=== PATIENT | male | born 1970 | race Caucasian/White ===

== ENCOUNTER 2016-12-06 18:07 | Emergency (ER) | payer OTHER ==
[~2016-12-06] VITALS: Ht 172.7 cm; Wt 113.4 kg
[~2016-12-06 18:07] MED LIST: AMOX-355 PO; FLUT1DIS26 IH; HYDR-3454 PO; LOVA20TA2 PO; MONT10TA21 PO; OMEP20TA7 PO; PANT40TA2 PO; PRED20TA PO; SERT100T8 PO; SUCR1TAB36 PO
--- OUTSIDE RECORDS SUMMARY | 2016-12-06 18:12 | XMS REPORT | Continuity of Care Document ---
Author Author [facility] Organization [facility] Address Unknown Phone Unavailable Allergies Active Description Code Type Severity Reaction Onset Reported/Identified Relationship to Patient Clinical Status Yes No Known Drug Allergies [id number] Drug Allergy Unknown N/ A 11/13/2014 Medications Problems Date Dx Coded Attending Type Code Diagnosis Diagnosed By 08/24/2014 EMELINA LLANES [employer]ICER Ot 471.9 08/24/2014 EMELINA LLANES [employer]INE [employer] INST[employer]ER AND SERVICER Ot 493.00 11/16/2014 GUERO WEBB, JAZIEL P Ot 470 11/16/2014 GUERO WEBB, JAZIEL P Ot 473.9 11/16/2014 GUERO WEBB, JAZIEL P Ot V72.63 11/16/2014 GUERO WEBB, JAZIEL P Ot V72.81 11/16/2014 GUERO WEBB, JAZIEL P Ot V74.8 11/17/2014 GUERO WEBB, JAZIEL P Ot 470 DEVIATED NASAL SEPTUM 11/17/2014 GUERO WEBB, JAZIEL P Ot 473.0 CHR MAXILLARY SINUSITIS 11/17/2014 GUERO WEBB, JAZIEL P Ot 473.1 CHR FRONTAL SINUSITIS 11/17/2014 GUERO WEBB, JAZIEL P Ot 473.2 CHR ETHMOIDAL SINUSITIS 11/17/2014 GUERO WEBB, JAZIEL P Ot 478.0 HYPERTRPH NASAL TURBINAT 12/05/2014 GUERO WEBB, JAZIEL P Ot 470 12/05/2014 GUERO WEBB, JAZIEL P Ot 473.9 12/05/2014 GUERO WEBB, JAZIEL P Ot V72.63 12/05/2014 GUERO WEBB, JAZIEL P Ot V72.81 12/05/2014 GUERO WEBB, JAZIEL P Ot V74.8 09/29/2016 EMELINA LLANES [employer]INE [employer] INST[employer]ER AND SERVICER Ot 471.9 NASAL POLYP NOS 09/29/2016 EMELINA LLANES [employer]INE [employer] IN[employer]ER AND SERVICER Ot 493.00 EXTRINSIC ASTHMA, NOS 09/29/2016 GUERO WEBB, JAZIEL P Ot 470 DEVIATED NASAL SEPTUM 09/29/2016 JAZIEL JACK MD P Ot 473.9 CHRONIC SINUSITIS NOS 09/29/2016 JAZIEL JACK MD Ot V72.63 PRE-PROCEDURAL LABORATORY EXAMINATION 09/29/2016 JAZIEL JACK MD Ot V72.81 [id number] CARDIOVASCULAR 09/29/2016 JAZIEL JACK MD Ot V74.8 SCREEN-BACTERIAL DIS NEC 10/03/2016 SUMIT SWAIN MD, Ot K21.9 GASTRO-ESOPHAGEAL REFLUX DISEASE WITHOUT 10/03/2016 SUMIT SWAIN MD Ot Z01.818 ENCOUNTER FOR OTHER PREPROCEDURAL EXAMIN 10/03/2016 SUMIT SWAIN MD, Ot K21.9 GASTRO-ESOPHAGEAL REFLUX DISEASE WITHOUT 10/03/2016 SUMIT SWAIN MD, Ot Z01.818 ENCOUNTER FOR OTHER PREPROCEDURAL EXAMIN 10/08/2016 EMELINA LLANES [employer]INE [employer] INST[employer]ER AND SERVICER Ot 471.9 NASAL POLYP NOS 10/08/2016 EMELINA LLANES [employer]INE [employer] INST[employer]ER AND SERVICER Ot 493.00 EXTRINSIC ASTHMA, NOS 10/08/2016 JAZIEL JACK MD Ot 470 DEVIATED NASAL SEPTUM 10/08/2016 JAZIEL JACK MD Ot 473.9 CHRONIC SINUSITIS NOS 10/08/2016 JAZIEL JACK MD Ot V72.63 PRE-PROCEDURAL LABORATORY EXAMINATION 10/08/2016 JAZIEL JACK MD Ot V72.81 [id number] CARDIOVASCULAR 10/08/2016 JAZIEL JACK MD Ot V74.8 SCREEN-BACTERIAL DIS NEC 10/09/2016 SUMIT SWAIN MD, Ot K21.0 GASTRO-ESOPHAGEAL REFLUX DISEASE WITH ES 10/09/2016 SUMIT SWAIN MD Ot K29.70 GASTRITIS, UNSPECIFIED, WITHOUT BLEEDING 10/09/2016 SUMIT SWAIN MD Ot Z98.84 BARIATRIC SURGERY STATUS 10/14/2016 SUMIT SWAIN MD, Ot K21.0 GASTRO-ESOPHAGEAL REFLUX DISEASE WITH ES 10/14/2016 SUMIT SWAIN MD, Ot K29.70 GASTRITIS, UNSPECIFIED, WITHOUT BLEEDING 10/14/2016 SUMIT SWAIN MD, Ot Z98.84 BARIATRIC SURGERY STATUS Procedures Results Encounters ACCT No. Visit Date/Time Discharge Status Pt. Type Provider Facility Loc./Unit Complaint [id number] 10/03/2016 09:30:00 2015 10:11:00 DIS Outpatient SUMIT SWAIN MD [facility] PREOP REFLUX [id number] 11/17/2014 07:59:00 2014 13:28:00 DIS Outpatient JAZIEL JACK MD [facility] CHRONIC SINUTITIS [id number] 11/13/2014 10:23:00 2014 23:59:59 CLS Outpatient JAZIEL JACK MD [facility] PREOP CHRONIC SINUSITIS [id number] 07/24/2014 09:40:00 2013 23:59:59 CLS Outpatient EMELINA LLANES [facility] RAD NASAL POLYP,ALLERGIC RHINITIS [id number] 10/08/2016 08:08:00 ACT Outpatient SUMIT SWAIN MD [facility] REFLUX
[2016-12-06] MEDS ORDERED: TETRACAINE 0.5% OPHTH SOLN 5 ML BTL OU STA (18:29)
[2016-12-06] MEDS ORDERED: FLUORESCEIN (FLUOR-I-STRIPS) 1 MG STRP OU ONE (18:30)
[2016-12-06] MEDS ORDERED: BSS 15 ML IR ONE (18:30)
--- NOTE | 2016-12-06 18:52 | ED EENT ---
History of Present Illness General Chief Complaint: Eye Problems Stated Complaint: SOMETHING IN EYES Nursing Triage Note: PT REPORTS HE GOT SOMETHING IN HIS EYES EARLIER TODAY AND FLUSHED THEM OUT WITH A MULTIPURPOSE SOLUTION AROUND 1700. PT REPORTS BILATERAL EYE IRRITATION/REDNESS/ AND PAIN AFTER FLUSHING. Source: patient Exam Limitations: no limitations History of Present Illness Time seen by provider: 18:52 Initial Comments To ER with bilateral eye redness and pain. He states that he was cleaning out a saltwater fish tank today when he felt as though he may have something in his left eye. He was concerned that he may have had something on his hands when he rubbed his eye. He went home, irrigated both eyes with contact lens cleaning solution and shortly thereafter developed bilateral eye redness and pain. He does see an eye doctor in [place] for a chronic left corneal abrasion/cataract. Timing/Duration: abrupt Location: eye (R), eye (L) Prearrival Treatment: flushing eyes Allergies and Home Medications Allergies Coded Allergies: No Known Drug Allergies (Unverified , 11/13/14) Home Medications Fluticasone/Salmeterol 1 Each Blst.w.dev 1 EACH IH BID (Reported) Lovastatin 20 Mg Tablet 20 MG PO DAILY (Reported) Montelukast Sodium 10 Mg Tablet 10 MG PO DAILY (Reported) Omeprazole 20 Mg Tablet.dr 20 MG PO DAILY (Reported) Pantoprazole Sodium 40 Mg Tablet.dr #90 40 MG PO DAILY Prescribed by: SUMIT SWAIN on 10/08/16 1002 Sertraline Hcl 100 Mg Tablet 100 MG PO DAILY (Reported) Sucralfate 1 Gm Tablet #120 1 GM PO QID Prescribed by: SUMIT SWAIN on 10/08/16 1002 Review of Systems Constitutional: see HPI Eyes: See HPI Blurred VisionDenies Drainage, Decreased Acuity Ears: No Symptoms Reported Nose: no symptoms reported Mouth: no symptoms reported Throat: no symptoms reported Respiratory: no symptoms reported Cardiovascular: no symptoms reported Musculoskeletal: no symptoms reported Skin: no symptoms reported Neurological: No Symptoms Reported Hematologic/Lymphatic: No Symptoms Reported Immunological/Allergic: no symptoms reported Past Cengubq-Qwrtxk-Jriyha Hx Patient Social History Alcohol Use: Occasionally Uses Recreational Drug Use: No Smoking Status: Never a Smoker Recent Foreign Travel: No Contact w/Someone Who Travel: No Recent Infectious Disease Expo: No Recent Hopitalizations: No Seasonal Allergies Seasonal Allergies: Yes Surgeries HX Surgeries: Yes (LAP BAND, SINUS SX) Surgeries: Tonsillectomy Respiratory Hx Respiratory Disorders: Yes Respiratory Disorders: Asthma Cardiovascular Hx Cardiac Disorders: Yes Cardiac Disorders: High Cholesterol Neurological Hx Neurological Disorders: No Genitourinary Hx Genitourinary Disorders: No Gastrointestinal Hx Gastrointestinal Disorders: Yes Gastrointestinal Disorders: Gastroesophageal Reflux Musculoskeletal Hx Musculoskeletal Disorders: No Endocrine Hx Endocrine Disorders: No HEENT HX ENT Disorders: No Cancer Hx Cancer: No Psychosocial Hx Psychiatric Problems: No Integumentary HX Skin/Integumentary Disorder: No Blood Transfusions Hx Blood Disorders: No Physical Exam Vital Signs Vital Sign - Last 12Hours 12/06/16 18:22 Temp 98.2 Pulse 85 Resp 18 B/P 142/82 Pulse Ox 95 General Appearance: WD/WN no apparent distress Eyes: bilateral eye EOMI, bilateral eye PERRL, bilateral eye other (bilateral conjunctival and scleral injection. There is no dye uptake on staining of either eye.) Neck: non-tender full range of motion Gastrointestinal: non tender soft Neurologic/Psychiatric: alert normal mood/affect oriented x 3 Skin: normal color warm/dry Progress/Results/Core Measures Results/Orders My Orders Orders-RO SHRESTHA APRN Tetracaine 0.5% Ophth Soln (Tetravisc 0. (12/06/16 18:29) Fluorescein Strips (Dauia-P-Zqcusp) (12/06/16 18:30) Balanced Salt Irrigation Soln (Bss Irrig (12/06/16 18:30) Ns Iv 500 Ml (Sodium Chloride 0.9%) (12/06/16 19:00) Ns Iv 500 Ml (Sodium Chloride 0.9%) (12/06/16 19:00) Prednisolone 1% Ophthalmic Maranda (Pred For (12/06/16 21:00) Medications Given in ED Current Medications Medications Dose Ordered Sig/Ne Route Start Time Stop Time Status Last Admin Dose Admin Balanced Salt Solution 15 ml ONCE ONCE IR 12/06/16 18:30 12/06/16 18:31 DC 12/06/16 19:07 15 ML Fluorescein Sodium 1 mg ONCE ONCE OU 12/06/16 18:30 12/06/16 18:31 DC 12/06/16 19:07 1 MG Vital Signs/I&O Vital Sign - Last 12Hours 12/06/16 18:22 Temp 98.2 Pulse 85 Resp 18 B/P 142/82 Pulse Ox 95 Blood Pressure Mean: 102 Departure Communication Progress Notes I did discuss the [place] [address] Mckay who agrees that this is likely secondary to the use of contact book cleaner solution as the preservative and this can become quite harsh. He states as long as there is no corneal staining (and there is not) he should be started on Pred Forte used 4 times daily and they will see him Thursday. He would like the patient to have his cell phone number to call him if he has any worsening at any point over the weekend. Impression Impression: Primary Impression: Chemical conjunctivitis of both eyes Disposition: HOME, SELF-CARE Condition: Stable Departure-Patient Inst. Decision time for Depature: 19:34 Referrals: ASHLEY MCKAY OD, RICK D MD (PCP/Family) Primary Care Physician Patient Instructions: Conjunctivitis ([place]key[place]) (DC) Add. Discharge Instructions: 1. Use the steroid eyedrops 2 drops every [address] Kwon would like to see her Thursday morning at 830 if you're able to. If you have any worsening symptoms such as worsening vision, worsening pain or worsening redness over the weekend he would like you to call him on his cell phone. His phone number is [phone]. All discharge instructions reviewed with patient and/or family. Voiced understanding. RO SHRESTHA APRN Dec 06, 2016 18:52
[2016-12-06] MEDS ORDERED: NS IV 500 ML 500 ML IV SCH ×2 (19:00)
[2016-12-06 19:30] VITALS: BP 0/0
[2016-12-06] MEDS ORDERED: prednisoLONE 1% OPTH (PRED FORTE) 5 ML BTL OU SCH (21:00)
== END 2016-12-06 19:40 | disposition home or self-care (01) ==
LOC: EDUNIT# 18:07 → ER 18:09
DX: H10.213 Acute toxic conjunctivitis, bilateral (principal); T49.5X5A Adverse effect of ophthalmological drugs and preparations, initial encounter
CPT/HCPCS: 96360; 99282